=== PATIENT | male | born 1950 | race Caucasian/White ===

== ENCOUNTER 2021-11-07 23:02 | Emergency (ER) | payer MEDICARE, OTHER ==
[~2021-11-07] VITALS: Ht 188 cm; Wt 83.9 kg
--- NOTE | 2021-11-07 23:10 | NUR ---
pt bib ra for ground level fall, pt is a/o has a head laceration above left eyebrow.
[2021-11-07] MEDS ORDERED: LIDOCAINE 2%-EPI 1:100,000 20 ML VIAL IJ ONE (23:15)
[2021-11-07] MEDS ORDERED: LIDOCAINE 1%-EPI 1:100,000 20 ML VIAL ONE (23:16)
[2021-11-07] MEDS ORDERED: AMLO-212 PO (23:19)
[2021-11-07] MEDS ORDERED: TADA5TAB2 PO (23:19)
[2021-11-07] MEDS ORDERED: TAMS-3 PO (23:19)
--- NOTE | 2021-11-08 00:42 | NUR ---
Dr. Hamilton at bedside to speak with the pt and his .
--- NOTE | 2021-11-08 01:07 | NUR ---
pt taken to cat scan.
--- NOTE | 2021-11-08 01:16 | NUR ---
pt returned from cat scan.
[2021-11-08 01:59] VITALS: BP 100/58
--- NOTE | 2021-11-08 01:59 | NUR ---
Patient discharged to home in stable condition. Written and verbal after care instructions given. Patient verbalizes understanding of instructions. Stressed follow up or return to ER for worsening s/s.
== END 2021-11-08 02:00 | disposition home or self-care (01) ==
LOC: ER 23:06
DX: S01.81XA Laceration without foreign body of other part of head, initial encounter (principal); S09.90XA Unspecified injury of head, initial encounter; W08.XXXA Fall from other furniture, initial encounter; Y92.019 Unspecified place in single-family (private) house as the place of occurrence of the external cause; H55.00 Unspecified nystagmus; N40.0 Benign prostatic hyperplasia without lower urinary tract symptoms; Z79.899 Other long term (current) drug therapy
CPT/HCPCS: 12013; 70450; 99284; J3490; A4663